=== PATIENT | female | born 1950 | race Caucasian/White ===

== ENCOUNTER → 2018-02-22 | Outpatient (CLI) | payer MEDICARE, BC | END | disposition home or self-care (01) | LOC: RAD 08:46 | PROVIDERS: ATTEND Family Medicine | DX: M43.17 Spondylolisthesis, lumbosacral region (principal); M51.37 Other intervertebral disc degeneration, lumbosacral region | CPT/HCPCS: 72110 ==

== ENCOUNTER 2021-07-06 10:12 | Outpatient (CLI) | payer MEDICARE, BC | END 2021-07-06 23:59 | disposition home or self-care (01) | LOC: CFH 10:12 | PROVIDERS: ATTEND Surgery | DX: Z02.9 Encounter for administrative examinations, unspecified (principal) ==

== ENCOUNTER 2021-07-20 11:55 | Emergency (ER) | payer MEDICARE, BC ==
[~2021-07-20] VITALS: Ht 170.2 cm; Wt 135.5 kg
--- NOTE | 2021-07-20 12:20 | NUR ---
PT REPORTS TRIPPING ON HER STEP IN HER HOUSE TODAY. R KNEE PAIN, LEFT ELBOW SKIN TEAR, AND HEMATOMA WITH SMALL LACERATION TO PT'S FOREHEAD RESULTING FROM GLF. PT DENIES LOC, MIDLINE NECK/BACK PAIN. PT RESTING IN POSITION OF COMFORT IN GURNEY. PT AMBULATORY ON ARRIVAL TO ED, WALKED TO BATHROOM WITH STEADY GAIT. PT HAS CONTINUOUS SPO2 AND CARDIAC MONITORING IN PLACE. FALL PRECAUTIONS IN PLACE. SPOUSE AT BEDSIDE. CALL LIGHT W/IN REACH. PT DENIES NEEDS. AWAITING EVAL BY ED MD.
[2021-07-20] MEDS ORDERED: DULA1.5P SC (12:24)
[2021-07-20] MEDS ORDERED: FURO20TA3 PO (12:29)
[2021-07-20] MEDS ORDERED: DOXA1TAB2 PO (12:29)
[2021-07-20] MEDS ORDERED: ATOR20TA PO (12:29)
[2021-07-20] MEDS ORDERED: GLIM4TAB8 PO (12:29)
[2021-07-20] MEDS ORDERED: LINA1TAB7 PO (12:29)
[2021-07-20] MEDS ORDERED: LEVO100T PO (12:29)
[2021-07-20] MEDS ORDERED: TRAN4TAB24 PO (12:29)
[2021-07-20] MEDS ORDERED: CARV-39 PO (12:29)
[2021-07-20] MEDS ORDERED: ASPI-963 PO (12:29)
[2021-07-20] MEDS ORDERED: LIDOCAINE-MPF 1%, 5ML INFIL ONE (13:00)
[2021-07-20] MEDS ORDERED: DIPH,PERTUSS(ACELL),TET VAC/PF 0.5 ML IM-VACC ONE ×2 (13:00→13:13)
[2021-07-20] MEDS ORDERED: LIDOCAINE-MPF 1%, 2ML ONE (13:13)
[2021-07-20] MEDS ORDERED: BACITRACIN ZINC OINT 500U/GM, 0.9 GM ONE (14:51)
[2021-07-20 14:59] VITALS: BP 156/70
--- NOTE | 2021-07-20 15:00 | NUR ---
PT AND SPOUSE VERBALIZED UNDERSTANDING TO DC INSTRUCTIONS. AMBULATORY TO CHECKOUT C STEADY GAIT. VSS. PT'S R ELBOW LAC DRESSED WITH BACITRACIN AND GAUZE BANDAGE. PT TOLERATED WELL.
== END 2021-07-20 15:02 | disposition home or self-care (01) ==
LOC: ED 14:56
DX: S51.011A Laceration without foreign body of right elbow, initial encounter (principal); S00.03XA Contusion of scalp, initial encounter; S80.01XA Contusion of right knee, initial encounter; W01.0XXA Fall on same level from slipping, tripping and stumbling without subsequent striking against object, initial encounter; Y93.89 Activity, other specified; Y92.009 Unspecified place in unspecified non-institutional (private) residence as the place of occurrence of the external cause; Y99.8 Other external cause status
CPT/HCPCS: 12002; 70450; 90471; 90715; 93005; 99285